=== PATIENT | male | born 1975 | race Caucasian/White ===

== ENCOUNTER 2022-11-21 11:19 | Emergency (ER) | payer OTHER ==
[2022-11-21 11:51] VITALS: BP 129/87; PULSE 60
[2022-11-21] MEDS ORDERED: Bacitracin Oint 1 GM U/D Packet TOP ONE (12:05)
[2022-11-21] MEDS ORDERED: Diphtheria,Pertussis(Acell),Tetanus Vaccine 0.5 ML Syringe IM ONE (12:05)
[2022-11-21] MEDS ORDERED: Lidocaine 1% with EPINEPHrine 1:100,000 50 ML MDV INFILT ONE (12:24)
[2022-11-21] MEDS ORDERED: cefTRIAXone 1 GM Vial IM ONE (13:33)
[2022-11-21] MEDS ORDERED: cefTRIAXone 1 GM, Lidocaine 1% 2.1 ML IM ONE ×2 (13:38)
== END 2022-11-21 14:13 | disposition home or self-care (01) ==
LOC: JP.ED 11:19
DX: S81.812A Laceration without foreign body, left lower leg, initial encounter (principal); Z23 Encounter for immunization; W29.0XXA Contact with powered kitchen appliance, initial encounter
CPT/HCPCS: 12002; 73590; 90471; 90715; 96372; 99283; J0696